=== PATIENT | female | born 1985 | race Caucasian/White ===

== ENCOUNTER 2018-01-06 19:56 | Emergency (ER) | payer BC ==
[~2018-01-06] VITALS: Ht 152.4 cm; Wt 63.6 kg
[~2018-01-06 19:56] MED LIST: MOTRIN 600600 MG/TAB PO; PERCOCET 325 MG1 TA2 PO; PRENATAL1 TA1 PO; REPREXAIN PO; SPRINTEC 35 MCG1 TAB PO; TYLENOL 325MG325 MG PO
[2018-01-06 19:59] VITALS: BP 129/69; PULSE 84; TEMP 98
[2018-01-06] MEDS ORDERED: NORCO 325 MG-51 TAB PO (20:02)
[2018-01-06 20:47] LABS: COLLECTION METHOD CLEAN CATCH
[2018-01-06 20:53] LABS: MUCOUS Present /lpf; PH 6 (5-8); URINE APPEARANCE Clear; URINE BACTERIA Rare /hpf; URINE BILIRUBIN Negative (NEGATIVE); URINE BLOOD 3+ (NEGATIVE); URINE COLOR Yellow; URINE GLUCOSE Negative (NEGATIVE); URINE KETONE Negative (NEGATIVE); URINE LEUKOCYTE ESTERASE 2+ (NEGATIVE); URINE NITRATE Negative (NEGATIVE); URINE PROTEIN(semi-quant) Negative (NEGATIVE); URINE RBC 0-2 /hpf; URINE UROBILINOGEN Negative (NEGATIVE)
[2018-01-06] MEDS ORDERED: CEFTIN 250250 MG/TAB PO (22:18)
== END 2018-01-06 22:25 | disposition home or self-care (01) ==
LOC: COL.ER 19:56
PROVIDERS: Family Medicine
DX: N39.0 Urinary tract infection, site not specified (principal)

== ENCOUNTER 2018-07-18 10:54 | Emergency (ER) | payer BC ==
[~2018-07-18] VITALS: Ht 152.4 cm; Wt 59.1 kg
[~2018-07-18 10:54] MED LIST changes: +CEFTIN 250250 MG/TAB PO; +NORCO 325 MG-51 TAB PO
[2018-07-18 10:56] VITALS: BP 143/87; TEMP 98.5
[2018-07-18] MEDS ORDERED: ALDACTONE 100M100 MG PO (12:00)
[2018-07-18] MEDS ORDERED: ADVIL200 MG PO (12:00)
[2018-07-18 13:11] VITALS: PULSE 71
== END 2018-07-18 13:12 | disposition home or self-care (01) ==
LOC: COL.ER 10:54
DX: R09.89 Other specified symptoms and signs involving the circulatory and respiratory systems (principal)